=== PATIENT | female | born 1950 | race Two or more races ===

== ENCOUNTER 2024-05-30 13:52 | Outpatient (AMB) | payer MEDICARE, MEDICAID, SELFPAY ==
--- NOTE | 2024-05-30 13:53 | A.OFFPC_ITS ---
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 Intake Note: patient here for new patient visit/ Diabetes Manager Of Case Required: No Is last menstrual period known: No Post menopausal: No Patient : No Allergies No Known Allergies Allergy (Verified 05/30/24 13:59) Tobacco use date assessed: 05/30/24 Fall risk assessment: 2 + Falls in past year Last assessed Fall Risk: 05/30/24 Dental Screening Dental Screen Date: 05/30/24 Did you have a dental visit in the last 12 months?: No Did you have a dental problem in the last 6 months where you did not have access to dental care?: No Was dental information given to patient?: Patient has dentist HPI HPI Comments History of Present Illness Details This is a 73-year-old female with a past medical history of GERD, sc hizophrenia, dementia, elevated LFTs, type 2 diabetes, allergic rhinitis, gout, hyperlipidemia and asthma presenting to [facility] care. She is accompanied by her daughter, Patricia. Her psychiatrist is Dr. Leigh. She attends a day program. Type 2 diabetes-treated with metformin 500 mg twice daily. She experiences diarrhea on this medication. Her daughter checks her blood sugar occasionally. Readings have been 140-170. [address] Dior every 6 months since she has a pericardial effusion when hospitalized for sepsis/pna last year. Daughter believes she is up-to-date with RSV, COVID, flu and pneumonia vaccine. She has chronic dyspnea on exertion since hospitalization. She has to use a walker since then. She requires help transferring. She has fallen, but she has been doing better recently. No recent falls. She has osteoarthritis in her left knee and lower back. She has tried Tylenol and naproxen without help. She takes tramadol 50 mg daily as needed which does help. She is not interested in physical therapy, cortisone injection orthopedic evaluation at this time. They request orders for a Mireille lift and hospital bed. They will be faxed to [facility]. 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 Her daughter is going to call the agency to start an evaluation for more hours. They report she had a colonoscopy at [facility] a few years ago. She would like a mammogram done at [facility]. Order placed. She would like a referral for an eye exam. She is overdue. ROS: Constitutional: No unexplained weight loss, fevers or chills. Eyes: No vision changes, blurry vision, double vision, eye pain, eye redness, eye discharge. Respiratory: No hemoptysis or sputum production. No wheezing. Chronic MAYA. Cardiovascular: No chest pain or palpitations. Gastrointestinal: No abdominal pain, nausea, vomiting or blood in stools. Neurologic: No syncope, seizures, tremors. Hematologic/Lymphatics: No bleeding or bruising. Physical exam: Constitutional: Alert, in no distress. Head: Normocephalic. Eyes: Pupils are equal, round and reactive to light. Extraocular muscles intact. Neck: Supple, Full range of motion. No lymphadenopathy. Respiratory: Clear to auscultation. Cardiovascular: S1 S2 regular. No murmurs. Musculoskeletal: anteromedial left knee tender to palpation. Bilateral lumbosacral areas tender to palpation. Ambulates slowly and is assisted to walker. Extremities: Warm and well perfused. No clubbing, cyanosis or edema. Psychiatric: Cooperative, calm. [facility] Medical History (Updated 05/30/24 @ 14:55 by LOAN Mohamud) Physical deconditioning History of fall Hyperlipidemia Osteoarthritis of lower back Incontinence Type II diabetes mellitus Anemia History of respiratory failure History of sepsis Acute pericardial effusion Hepatic steatosis Schizophrenia Depression Diarrhea Arthritis of left knee Diabetes High cholesterol Asthma Family History (Updated 05/30/24 @ 14:10 by Dena Alegria MA) Sister Schizophrenia Social History Housing: House Patient Tobacco Use Status: Never used Tobacco e-Cigarette/Vaping Use: Never Used Second Hand Smoke Exposure: No service: No Current occupational status: disabled Current occupational exposures/hazards: No Cognitive needs: Yes (walker) Hearing needs: No Vision needs: Yes Questionnaire PHQ-9 Over the last 2 weeks, how often have you been bothered by any of the following problems? 1. Little interest or pleasure in doing things: several days 2. Feeling down, depressed, or hopeless: several days 3. Trouble falling or staying asleep, or sleeping too much: not at all 4. Feeling tired or having little energy: several days 5. Poor appetite or overeating: not at all 6. Feeling bad about yourself - or that you are a failure or have let yourself or your family down: not at all 7. Trouble concentrating on things, such as reading the newspaper or watching television: several days 8. Moving or speaking so slowly that other people could have noticed. Or the opposite - being so fidgety or restless that you have been moving around a lot more than usual: not at all 9. Thoughts that you would be better off or of hurting yourself in some way: not at all Total score: 4 Depression Screening Interpretation: Positive Depression Screening Follow-up: In treatment Depression Screening Done: Yes 02822 - PHQ-9 Billing: Yes Source: Developed by Drs. Mohsen Kidd, Andree Naranjo, Trevon Villarreal and colleagues, with an educational kim from [employer]. Thrive Questionnaire Date Thrive assessed: 05/30/24 I am a: Patient What is your living situation today?: I have a steady place to live Within the past 12 months, did the food you bought not last and you didn't have the money to get more?: Never true Within the past 12 months, did you worry whether your food would run out before you got money to buy more?: Sometimes True Do you have trouble paying for medicines?: Yes Do you have trouble getting transportation to medical appointments?: No Do you have trouble paying your heating and electricity bill?: No Do you have trouble taking care of your child, family member or friend?: No Do you have trouble with day-to-day activities such as bathing, preparing meals, shopping, managing finances, etc.?: Yes Are you currently unemployed and looking for a job?: No Are you interested in more education?: No Please select the resources that you would like help with: None Currently or been in a relationship where the following occur: No concerns reported THRIVE Score: 1 AUDIT C Alcohol Use Questionnaire (AUDIT-C) 1. How often do you have a drink containing alcohol?: Never 3. How often do you have six or more drinks on one occasion?: Never Total Score: 0 DIVYA-7 AMB Questionnaire DIVYA-7 Date DIVYA - 7 assessed: 05/30/24 Feeling nervous, anxious, or on edge: 1 = Several days Not being able to stop or control worryin = Several days Worrying too much about different things: 1 = Several days Trouble relaxin = Not at all Being so restless that it is hard to sit still: 0 = Not at all Becoming easily annoyed or irritable: 1 = Several days Feeling afraid as if something awful might happen: 3 = Nearly every day Total DIVYA-7 score (0-4 normal; 5-9 mild; 10-14 moderate; 15-21 severe): 7 Source: Developed by Drs. Mohsen Kidd, Andree Naranjo, Trevon Villarreal and colleagues, with an educational kim from [employer]. DIVYA-7 Assessment Billing DIVYA-7 Assessment Tool: DIVYA-7 Assessment 29026 ACT Questionnaire In the past 4 weeks, how much of the time did your asthma keep you from getting as much done at work, school or at home?: None of the time During the past 4 weeks, how often have you had shortness of breath?: Once a day During the past 4 weeks, how often did your asthma symptoms wake you up at night or earlier than usual in the morning?: Not at all During the past 4 weeks, how often have you had to use your rescue inhaler or nebulizer medication?: 1-2 times a week How would you rate your asthma control during the past 4 weeks?: Somewhat controlled ACT Interpretation: Positive Score: 17 Physical exam (Primary Care) Vital Signs: Last Vital Signs Temp 98.2 F 05/30/24 14:10 Pulse 79 05/30/24 14:10 Resp 16 05/30/24 14:10 BP 131/65 05/30/24 14:10 Pulse Ox 98 05/30/24 14:10 Oxygen Delivery Method Room Air 05/30/24 14:10 BMI result Body Mass Index 33.3 Tobacco/Smoking Status: Tobacco use Status Tobacco use date assessed 05/30/24 05/30/24 14:10 Patient Tobacco Use Status Never used Tobacco 05/30/24 14:10 e-Cigarette/Vaping Use Never Used 05/30/24 14:10 PHQ-9: PHQ-9 Score PHQ-9: Total score 4 05/30/24 13:56 Depression Screening Interpretation: Positive Depression Screening Follow-up: In treatment Thrive Assessment: Date of Thrive Assessment Date Thrive assessed 05/30/24 05/30/24 13:56 Currently or been in a relationship where the following occur: No concerns reported Coding Level of Care Code New Pt Level 4 (40728) Complex EM visit Add On G2211 Diagnoses Hyperlipidemia E78.5 Schizophrenia F20.9 Osteoarthritis of lower back M47.9 Arthritis of left knee M17.12 Type II diabetes mellitus E11.9 Anemia D64.9 Hepatic steatosis K76.0 Additional Codes Asthma Control Questionnaire - ACT Interpretation: Positive ([id number]) DIVYA-7 Assessment Billing - DIVYA-7 Assessment Tool: DIVYA-7 Assessment 42728 ([id number]) PHQ-9 - 68340 - PHQ-9 Billing: Yes ([id number]) Assessment & Plan Assessment & Plan (1) Hyperlipidemia: Code(s): E78.5 - Hyperlipidemia, unspecified Category: Medical Plan: Continue atorvastatin. Check lipid profile. (2) Schizophrenia: Code(s): F20.9 - Schizophrenia, unspecified Category: Medical Plan: Continue management per Psychiatry. (3) Osteoarthritis of lower back: Code(s): M47.9 - Spondylosis, unspecified Category: Medical Plan: Tramadol 50 mg daily as needed. Advised this can be sedating and cause dizziness or increase risk of falls. She has tolerate it historically. We discussed it is a habit-forming medication. She can also use acetaminophen 500 to a 1000 mg every 8 hours as needed for pain. Declines referrals for pain management, Orthopedics, physiatry. Declines imaging at this time. We have received records, and I will need to review them. She is using a walker. She has physical deconditioning following hospitalization last year. She has chronic pain due to osteoarthritis. Hospital bed and Mireille lift are medically necessary. These will be sent to the DME supplier. (4) Arthritis of left knee: Code(s): M17.12 - Unilateral primary osteoarthritis, left knee Category: Medical (5) Type II diabetes mellitus: Code(s): E11.9 - Type 2 diabetes mellitus without complications Category: Medical Plan: Continue metformin but change to extended release 500 mg twice a day. Check labs. They have a glucometer. Her daughter wants to see if insurance will cover sensor. Sent David 3+. (6) Anemia: Code(s): D64.9 - Anemia, unspecified Category: Medical Plan: Check labs. (7) Hepatic steatosis: Code(s): K76.0 - Fatty (change of) liver, not elsewhere classified Category: Medical Plan: Check labs. Plan Follow up in 3 months. Orders: Orders TSH reflex Free T4 Today D64.9 - Anemia, unspecified, E11.9 - Type 2 diabetes mellitus without complications, K76.0 - Fatty (change of) liver, not elsewhere classified Comprehensive Met. Panel Today D64.9 - Anemia, unspecified, E11.9 - Type 2 diabetes mellitus without complications, K76.0 - Fatty (change of) liver, not elsewhere classified Vitamin B12 Today D64.9 - Anemia, unspecified, E11.9 - Type 2 diabetes mellitus without complications, K76.0 - Fatty (change of) liver, not elsewhere classified, Z91.89 - Other specified personal risk factors, not elsewhere classified Lipid Panel Today D64.9 - Anemia, unspecified, E11.9 - Type 2 diabetes mellitus without complications, E78.5 - Hyperlipidemia, unspecified, K76.0 - Fatty (change of) liver, not elsewhere classified MM screening mammo BI Today Z12.31 - Encounter for screening mammogram for malignant neoplasm of breast Hemoglobin A1c Today D64.9 - Anemia, unspecified, E11.9 - Type 2 diabetes mellitus without complications, K76.0 - Fatty (change of) liver, not elsewhere classified Complete Blood Count no Diff Today D64.9 - Anemia, unspecified, E11.9 - Type 2 diabetes mellitus without complications, K76.0 - Fatty (change of) liver, not elsewhere classified IRON PROFILE Today D64.9 - Anemia, unspecified, E11.9 - Type 2 diabetes mellitus without complications, K76.0 - Fatty (change of) liver, not elsewhere classified Referrals Optometry Referral E11.9 - Type 2 diabetes mellitus without complications Medications: New atorvastatin 10 mg PO DAILY 90 tabs 3RF loratadine (Allergy Relief (loratadine)) 10 mg PO DAILY 90 caps 3RF tramadol 50 mg PO DAILY PRN 30 tabs 0RF pain miscellaneous medical supply As directed 1 ea 0RF M17.12 - Unilateral primary osteoarthritis, left knee, M47.9 - Spondylosis, unspecified, R53.81 - Other malaise, Z91.81 - History of falling metformin ER 500 mg PO BID 180 tabs 3RF pantoprazole 40 mg PO DAILY 90 tabs 3RF miscellaneous medical supply As directed 1 ea 0RF M17.12 - Unilateral primary osteoarthritis, left knee, M47.9 - Spondylosis, unspecified, R53.81 - Other malaise, Z91.81 - History of falling miscellaneous medical supply 1 ea miscellaneous DAILY 1 ea 0RF M17.12 - Unilateral primary osteoarthritis, left knee, M47.9 - Spondylosis, unspecified, R53.81 - Other malaise, Z91.81 - History of falling
[2024-05-30 14:10] VITALS: BP 131/65; PULSE 79; RESP 16; TEMP 36.8; O2SAT 98; BMI 33.3
== END 2024-05-30 14:51 | disposition home or self-care (01) ==
LOC: HO.HMCFM 13:52
PROVIDERS: PCP Physician Assistant Medical; Visit Provider Physician Assistant Medical
DX: E11.69 Type 2 diabetes mellitus with other specified complication (principal); F20.9 Schizophrenia, unspecified; E78.5 Hyperlipidemia, unspecified; M47.9 Spondylosis, unspecified; M17.12 Unilateral primary osteoarthritis, left knee; D64.9 Anemia, unspecified; K76.0 Fatty (change of) liver, not elsewhere classified

== ENCOUNTER → 2024-05-30 13:52 | Outpatient (BNVA) | payer MEDICARE, SELFPAY | PROVIDERS: PCP Physician Assistant Medical; Visit Provider Physician Assistant Medical | DX: K21.9 Gastro-esophageal reflux disease without esophagitis (principal); E11.9 Type 2 diabetes mellitus without complications; E78.5 Hyperlipidemia, unspecified; J45.909 Unspecified asthma, uncomplicated; F03.90 Unspecified dementia, unspecified severity, without behavioral disturbance, psychotic disturbance, mood disturbance, and anxiety; F20.9 Schizophrenia, unspecified; M47.9 Spondylosis, unspecified; M17.12 Unilateral primary osteoarthritis, left knee; D64.9 Anemia, unspecified; K76.0 Fatty (change of) liver, not elsewhere classified; R53.81 Other malaise; Z91.81 History of falling | CPT/HCPCS: 96127; 96160; 99202 ==

== ENCOUNTER 2024-09-02 14:56 | Outpatient (AMB) | payer MEDICARE, MEDICAID, SELFPAY ==
--- NOTE | 2024-09-02 15:01 | MHC.PC.OV ---
Vital Signs 09/02/24 15:09 Height 4 ft 10 in Weight 152 lb BMI 31.8 BP 108/68 Blood Pressure Location Lt brachial Position Sitting Pulse 75 Pulse Source Pulse Oximeter Temp 98.1 F Temp Source Temporal Artery Scan Pulse Oximetry (%) 96 Oxygen Delivery Method Room Air Intake Visit Reasons: Type II diabetes Intake Note: Lupe presents in the office today for a follow up to her diabetes. Needs a refill of the tramadol. Patient had cataract surgery on her left eye. Patient is having pain behind her left knee. Allergies No Known Allergies Allergy (Verified 09/02/24 15:05) Tobacco use date assessed: 09/02/24 Fall risk assessment: 1 Fall in past year Last assessed Fall Risk: 09/02/24 Dental Screening Dental Screen Date: 09/02/24 Did you have a dental visit in the last 12 months?: No Did you have a dental problem in the last 6 months where you did not have access to dental care?: No Was dental information given to patient?: Patient declined HPI HPI Comments History of Present Illness Details This is a 73-year-old female with a past medical history of GERD, schizophrenia, dementia, elevated LFTs, type 2 diabetes, allergic rhinitis, gout, hyperlipidemia and asthma presenting for follow up. She is accompanied by her daughter, Patricia. Her psychiatrist is Dr. Leigh. She attends a day program. Daughter says he referred her for a neuropscyh evaluation. Type 2 diabetes-treated with metformin extended release 500 mg twice daily. Has nausea with the sometimes. Requests refill on ondansetron. Her pain medicine also makes her nauseous. Her daughter checks her blood sugar in the evening and says they are around 140. No hypoglycemia. She sees Dr. Dior every 6 months since she has a pericardial effusion when hospitalized for sepsis/pna last year. She has chronic dyspnea on exertion since hospitalization. She has to use a walker since then. She requires help transferring. She has fallen, but she has been doing better. No recent falls. They received the hospital bed and maryse lift. She has osteoarthritis in her left knee and lower back. She takes tramadol 50 mg daily as needed which does help. She is not interested in physical therapy, cortisone injection orthopedic evaluation at this time. 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 Dr. Campbell removed the left cataract and the right cataract is scheduled next month. She has an abdominal pannus, and they request a cream to use for intertrigo as needed. Allergies-She needs refills on Claritin and Albuterol. She coughs and rarely wheezes with allergies. She gets a runny nose. They report she had a colonoscopy at [facility] a few years ago. She is rescheduling her mammogram for after the next cataract removal. ROS: Constitutional: No unexplained weight loss, fevers or chills. Eyes: No vision changes, blurry vision, double vision, eye pain, eye redness, eye discharge. Respiratory: No hemoptysis or sputum production. No wheezing. Chronic MAYA. Cardiovascular: No chest pain or palpitations. Gastrointestinal: No abdominal pain, nausea, vomiting or blood in stools. Neurologic: No syncope, seizures, tremors. Hematologic/Lymphatics: No bleeding or bruising. Physical exam: Constitutional: Alert, in no distress. Head: Normocephalic. Eyes: Pupils are equal, round and reactive to light. Extraocular muscles intact. Neck: Supple, Full range of motion. No lymphadenopathy. Respiratory: Clear to auscultation. Cardiovascular: S1 S2 regular. No murmurs. Musculoskeletal: anteromedial left knee tender to palpation. Bilateral lumbosacral areas tender to palpation. Ambulates slowly using a walker. Extremities: Warm and well perfused. No clubbing, cyanosis or lower extremity edema. Skin: Mild erythema below the abdominal pannus. No skin breakdown. Psychiatric: Cooperative, calm. [facility], [facility] Medical History (Updated 09/02/24 @ 15:57 by LOAN Mohamud) Intertrigo Cataract Physical deconditioning History of fall Hyperlipidemia Osteoarthritis of lower back Incontinence Type II diabetes mellitus Anemia History of respiratory failure History of sepsis Acute pericardial effusion Hepatic steatosis Schizophrenia Depression Diarrhea Arthritis of left knee Diabetes High cholesterol Asthma Family History Sister Schizophrenia Social History (Updated 09/02/24 @ 15:09 by Joselyn Babcock MA) Housing: House Alcohol intake: never Patient Tobacco Use Status: Never used Tobacco e-Cigarette/Vaping Use: Never Used Second Hand Smoke Exposure: No service: No Current occupational status: disabled Current occupational exposures/hazards: No Cognitive needs: Yes (walker) Hearing needs: No Vision needs: Yes Questionnaire Thrive Questionnaire Date Thrive assessed: 05/23/24 I am a: Patient What is your living situation today?: I have a steady place to live Within the past 12 months, did the food you bought not last and you didn't have the money to get more?: Never true Within the past 12 months, did you worry whether your food would run out before you got money to buy more?: Sometimes True Do you have trouble paying for medicines?: Yes Do you have trouble getting transportation to medical appointments?: No Do you have trouble paying your heating and electricity bill?: No Do you have trouble taking care of your child, family member or friend?: No Do you have trouble with day-to-day activities such as bathing, preparing meals, shopping, managing finances, etc.?: Yes Are you currently unemployed and looking for a job?: No Are you interested in more education?: No Please select the resources that you would like help with: None Currently or been in a relationship where the following occur: No concerns reported THRIVE Score: 1 DIVYA-7 AMB Questionnaire DIVYA-7 Date DIVYA - 7 assessed: 05/30/24 Source: Developed by Drs. Mohsen Kidd, Andree Naranjo, Trevon Villarreal and colleagues, with an educational kim from [employer]. Physical exam (Primary Care) Vital Signs: Last Vital Signs Temp 98.1 F 09/02/24 15:09 Pulse 75 09/02/24 15:09 BP 108/68 09/02/24 15:09 Pulse Ox 96 09/02/24 15:09 Oxygen Delivery Method Room Air 09/02/24 15:09 BMI result Body Mass Index 31.8 Tobacco/Smoking Status: Tobacco use Status Tobacco use date assessed 09/02/24 09/02/24 15:13 Patient Tobacco Use Status Never used Tobacco 09/02/24 15:09 e-Cigarette/Vaping Use Never Used 09/02/24 15:09 Thrive Assessment: Date of Thrive Assessment Date Thrive assessed 05/23/24 09/02/24 15:04 Currently or been in a relationship where the following occur: No concerns reported Coding Level of Care Code Est Pt Level 4 (17773) Complex EM visit Add On G2211 Diagnoses Pure hypercholesterolemia E78.00 Hyperlipidemia type: pure hypercholesterolemia Schizophrenia F20.9 Osteoarthritis of lower back M47.9 Arthritis of left knee M17.12 Type II diabetes mellitus E11.9 Anemia D64.9 Hepatic steatosis K76.0 Intertrigo L30.4 Assessment & Plan Assessment & Plan (1) Hyperlipidemia: Code(s): E78.5 - Hyperlipidemia, unspecified Category: Medical Qualifiers: Hyperlipidemia type: pure hypercholesterolemia Qualified Code(s): E78.00 - Pure hypercholesterolemia, unspecified Plan: Continue atorvastatin. Check lipid profile. (2) Schizophrenia: Code(s): F20.9 - Schizophrenia, unspecified Category: Medical Plan: Continue management per Psychiatry. (3) Osteoarthritis of lower back: Code(s): M47.9 - Spondylosis, unspecified Category: Medical Plan: Tramadol 50 mg daily as needed. Advised this can be sedating and cause dizziness or increase risk of falls. We discussed it is a habit-forming medication. She can also use acetaminophen 500 to a 1000 mg every 8 hours as needed for pain. Declines referrals for pain management, Orthopedics, physiatry. Declines imaging at this time. She is using a walker. (4) Arthritis of left knee: Code(s): M17.12 - Unilateral primary osteoarthritis, left knee Category: Medical (5) Type II diabetes mellitus: Code(s): E11.9 - Type 2 diabetes mellitus without complications Category: Medical Plan: Continue metformin extended release 500 mg twice a day. Check labs. Sent new glucometer and supplies. CGM co-pay is too expensive. (6) Anemia: Code(s): D64.9 - Anemia, unspecified Category: Medical Plan: Check labs. (7) Hepatic steatosis: Code(s): K76.0 - Fatty (change of) liver, not elsewhere classified Category: Medical Plan: Check labs. (8) Intertrigo: Code(s): L30.4 - Erythema intertrigo Category: Medical Plan: Clotrimazole 1% bid x 14 days as needed. Plan Follow up in 3 months. Medications: New blood-glucose meter (FreeStyle Lite Meter kit) as directed 1 ea 0RF E11.9 - Type 2 diabetes mellitus without complications blood sugar diagnostic (FreeStyle Lite Strips) As directed to check glucose up to once daily 100 ea 5RF inhalat.spacing dev,med. mask As directed 1 ea 0RF albuterol sulfate 90 mcg/actuation 2 puffs inhalation Q4H PRN 8.5 grams 1RF wheezing, coughing or shortness of breath ondansetron HCl 4 mg PO Q8H PRN 20 tabs 0RF nausea and vomiting lancets (FreeStyle Lancets) Use to monitor blood glucose once daily. 100 ea 5RF loratadine (Claritin) 10 mg PO DAILY PRN 90 tabs 3RF allergy symptoms clotrimazole 1% 1 appl topical BID PRN 30 grams 2RF fungal infection 14 days Refilled tramadol 50 mg PO DAILY PRN 30 tabs 0RF pain Discontinued loratadine (Allergy Relief (loratadine)) Discontinued Reason: Doctor's Order 10 mg PO DAILY 90 caps 3RF blood-glucose,electro mechanical engineer,cont (FreeStyle David 3 [place]) Discontinued Reason: Doctor's Order Use daily to monitor blood glucose levels continuously. 1 ea 0RF blood-glucose sensor (FreeStyle David 3 Plus Sensor device) Discontinued Reason: Doctor's Order Apply 1 new sensor every 15 days as directed to monitor blood glucose continuously. 2 ea 11RF E16.2 - Hypoglycemia, unspecified, R73.03 - Prediabetes
[2024-09-02 15:09] VITALS: BP 108/68; PULSE 75; TEMP 36.7; O2SAT 96; BMI 31.8
== END 2024-09-02 15:52 | disposition home or self-care (01) ==
LOC: HO.HMCFM 14:57
PROVIDERS: PCP Physician Assistant Medical; Visit Provider Physician Assistant Medical
DX: E11.9 Type 2 diabetes mellitus without complications (principal); F20.9 Schizophrenia, unspecified; E78.00 Pure hypercholesterolemia, unspecified; M47.9 Spondylosis, unspecified; M17.12 Unilateral primary osteoarthritis, left knee; D64.9 Anemia, unspecified; K76.0 Fatty (change of) liver, not elsewhere classified; L30.4 Erythema intertrigo

== ENCOUNTER → 2024-09-02 14:56 | Outpatient (BNVA) | payer MEDICARE, SELFPAY | PROVIDERS: PCP Physician Assistant Medical; Visit Provider Physician Assistant Medical | DX: E78.00 Pure hypercholesterolemia, unspecified (principal); F20.9 Schizophrenia, unspecified; M47.9 Spondylosis, unspecified; M17.12 Unilateral primary osteoarthritis, left knee; E11.9 Type 2 diabetes mellitus without complications; D64.9 Anemia, unspecified; K76.0 Fatty (change of) liver, not elsewhere classified; L30.4 Erythema intertrigo; Z79.84 Long term (current) use of oral hypoglycemic drugs; Z79.891 Long term (current) use of opiate analgesic; Z79.899 Other long term (current) drug therapy | CPT/HCPCS: 99212 ==

== ENCOUNTER 2024-09-16 08:58 | Outpatient (REF) | payer MEDICARE, MEDICAID, SELFPAY ==
--- OUTSIDE RECORDS SUMMARY | 2024-09-16 09:33 | XMS_ITS | Clinical Summary ---
Author Organization [facility] Address [address] [place] [address] Phone Care Team Providers Care Burrer Machine Name Role Phone Pcp, Unknown Primary Care Provider Unavailabl e Social History Tobacco Use Types Packs/Day Years Used Date Smoking Tobacco: Never Assessed Education Answer Date Recorded Are you interested in more education? Not on keisha e 04/17/2024 Are you concerned about learning? Not on file 04/17/2024 No 04/17/2024 No 04/17/2024 Digital Access Answer Date Recorded No 04/17/2024 No 04/17/2024 Reliable internet access at home? Not on file 04/17/2024 Device with a working camera? Not on file Comments Unknown Sex and Gender Information Value Date Recorded Sex Assigned at Not on file Legal Sex Female 1:49 PM EST Gender Identity Not on file Sexual Orientation Not on file Plan of Treatment Upcoming Encounters Date Type Department Care Team ([facility] Contact Info) Description 12/26/2024 1:30 PM EST Office Visit [facility] Medicine [address] [place] [address] Golden Boyle MD [address] [place] [address], [address] [place] [address] [email or web address] Health Maintenance Due Date Last Done Comments Adult Td,Tdap Booster 1948 LIPID PANEL 1948 DEPRESSION SCREENING 1960 SMOKING Hx and SMOKELESS TOB ACCO SCREENING 1961 HEPATITIS C SCREENING 1966 COLOGUARD 1993 COLONOSCOPY 1993 COLORECTAL CANCER SCREENING 1993 FIT TEST 1993 FOBT 1993 SIGMOIDOSCOPY 1993 VIRTUAL COLONOSCOPY 1993 PNEUMOCOCCAL VACCINES (50+ y ears) (1 of 1 - PCV) 1998 ZOSTER VACCINES (1 of 2) 1998 OSTEOPOROSIS SCREENING INITI AL (ONE-TIME) 2013 RSV VACCINE (1 - 1-dose 75+ series) 10/21/2023 COVID-19 VACCINE (1 - 2023-2 5 season) 2023 HEPATITIS A VACCINES Aged Out No long er eligible based on patient's age to complete this topic HIB VACCINES Aged Out No longer eligi ble based on patient's age to complete this topic MENINGOCOCCAL VACCINES (ACWY) Aged Out No longer eligible based on patient's age to complete this topic MENINGOCOCCAL VACCINES (B) Aged Out N o longer eligible based on patient's age to complete this topic Medical Devices Not on file Insurance [facility] MEDICARE PART A & B [place] & [place] & B [facility] MEDICARE PART A & B Care Teams Burrer Machine Relationship Specialty Start Date End Date Pcp, Unknown PCP - General 04/17/24 Additional Source Comments The information contained in this document represents components of the legal health record. It is not the complete legal health record.[facility]
[2024-09-16 11:45] LABS: Hematocrit 40.7 % (37.0-47.0); Hemoglobin 13.1 g/dl (12.0-16.0); Mean Corpuscular HGB Conc 32.2 g/dl (31.0-35.0); Mean Corpuscular Hemoglobin 30.5 pg (27.0-33.0); Mean Corpuscular Volume 94.9 fL (80.0-98.0); NRBC Abs Auto 0.000 X10*3/uL (0.0-0.012); NRBC Pct Auto 0.0 /100WBC (0.0-0.2); Platelet Count 236 X10*3/uL (160-400); Red Blood Count 4.29 X10*6/uL (4.20-5.50); White Blood Count 9.1 X10*3/uL (4.8-10.8)
[2024-09-16 12:02] LABS: Hemoglobin A1C 125.3643 umol/L; Total Hemoglobin (HGBA1C) 3444.0257 umol/L
[2024-09-16 12:19] LABS: Alanine Aminotransferase 8 U/L (0-31); Albumin Level 4.0 g/dL (3.5-5.0); Alkaline Phosphatase 76 U/L (39-117); Anion Gap 12 (12-20); Aspartate Amino Transferase 21 U/L (5-31); Blood Urea Nitrogen 18 mg/dL (9-16); Calcium 8.8 mg/dL (8.4-10.2); Carbon Dioxide 23 mmol/L (22-29); Chloride 107 mmol/L (96-108); Cholesterol 163 mg/dL (<200); Estimated Glomerular Filt Rate > 60; HDL Cholesterol 46 mg/dL (>40); Iron 47 mcg/dL (30-160); Percent Iron Saturation 26 % (15-50); Potassium 4.2 mmol/L (3.3-5.1); Sodium 138 mmol/L (135-145); Total Iron Binding Capacity 183 mcg/dL (228-428); Total Protein 6.3 g/dL (6.5-8.0); Triglycerides 109 mg/dL (<150); Unsaturated Iron Binding 136 ug/dL
[2024-09-16 12:28] LABS: Vitamin B12 340 pg/mL (200-900)
[2024-09-16 13:14] LABS: Free T4 (Free Thyroxine) 1.10 ng/dL (0.71-1.85)
== END 2024-09-16 08:59 | disposition home or self-care (01) ==
LOC: HO.WFDLDS 08:58
PROVIDERS: Visit Provider Physician Assistant Medical
DX: D64.9 Anemia, unspecified (principal); K76.0 Fatty (change of) liver, not elsewhere classified; E11.9 Type 2 diabetes mellitus without complications; E78.5 Hyperlipidemia, unspecified; Z91.89 Other specified personal risk factors, not elsewhere classified
CPT/HCPCS: 36415; 80053; 80061; 82607; 83036; 83540; 84439; 84443; 85027